=== PATIENT | female | born 2000 | race Caucasian/White ===

== ENCOUNTER 2024-09-28 11:00 | Inpatient (IN) | payer OTHER ==
[~2024-09-28 11:00] MED LIST: Bupivacaine 0.25% 10 ML SDV ONE
[2024-09-28] MEDS ORDERED: Sodium Chloride 0.9% 10 ML Syringe FLUSH PRN (19:06)
[2024-09-28] MEDS ORDERED: Ondansetron 4 MG/2 ML SDV IVPUSH PRN (19:06)
[2024-09-28] MEDS ORDERED: Lidocaine 1% 50 ML MDV INJECT PRN (19:06)
[2024-09-28] MEDS ORDERED: Nalbuphine 10 MG/1 ML Vial IVPUSH PRN (19:06)
[2024-09-28] MEDS ORDERED: Oxytocin/0.9 % Sodium Chloride 30 UNIT/500 ML BAG IV SCH ×2 (19:15→23:45)
[2024-09-28] MEDS ORDERED: Misoprostol 25 MCG (1/4 of 100 MCG) Tab VAG PRN (19:19)
[2024-09-28 19:23] LABS: BASOPHILS PERCENT AUTO 0.2 % (0.0-1.0); EOSINOPHILS ABSOLUTE AUTO 0.1 K/mm3 (0.0-0.4); EOSINOPHILS PERCENT AUTO 0.4 % (0.0-6.0); HEMATOCRIT 38.4 % (37.0-47.0); HEMOGLOBIN 12.6 gm/dl (12.0-16.0); IMMATURE GRAN ABSOLUTE AUTO 0.18 K/mm3 (0.00-0.05); IMMATURE GRAN PERCENT AUTO 1.3 % (0.0-0.4); LYMPHOCYTES ABSOLUTE AUTO 2.6 K/mm3 (1.0-4.8); LYMPHOCYTES PERCENT AUTO 18.1 % (24.0-44.0); MEAN CORPUSCULAR HEMOGLOBIN 28.6 pg (28.0-32.0); MEAN CORPUSCULAR HGB CONC 32.8 g/dl (32.0-36.0); MEAN CORPUSCULAR VOLUME 87.3 fl (83.0-99.0); MEAN PLATELET VOLUME 9.3 fl (9.4-12.3); MONOCYTES PERCENT AUTO 6.9 % (0.0-8.0); NEUTROPHILS ABSOLUTE AUTO 10.4 K/mm3 (1.8-7.7); NEUTROPHILS PERCENT AUTO 73.1 % (41.0-71.0); PLATELET COUNT,PLT 242 K/mm3 (150-400); WHITE BLOOD CELL COUNT,WBC 14.18 K/mm3 (3.9-11.3)
[2024-09-28] MEDS: Misoprostol 25 MCG (1/4 of 100 MCG) Tab VAG ONE (19:39)
[2024-09-28 19:45] LABS: ALANINE AMINOTRANSFERASE,ALT 23 U/L (14-59); ASPARTATE AMNIOTRANSFERASE,AST 18 U/L (15-37); BLOOD UREA NITROGEN,BUN 7 mg/dL (7-18); CREATININE 0.7 mg/dL (0.55-1.02); ESTIMATED GFR 122 mL/min (>60); LACTATE DEHYDROGENASE,LDH 193 U/L (81-234); URIC ACID 4.3 mg/dL (2.6-6.0)
[2024-09-28] MEDS ORDERED: Ampicillin 2 GM in Sodium Chloride 0.9% 100 ML IV ONE (20:00)
[2024-09-28] MEDS ORDERED: ePHEDrine 50 MG/ML SDV IVPUSH PRN (20:11)
[2024-09-28] MEDS ORDERED: diphenhydrAMINE 50 MG/ML SDV IVPUSH PRN (20:11)
[2024-09-28 22:23] LABS: CREATININE,URINE RAND 57.6 mg/dL (30.0-125.0); PROTEIN CREATININE RATIO,URINE 118.1 mg/g (0-149); PROTEIN,URINE RANDOM 6.8 mg/dL (0.0-11.8)
[2024-09-29] MEDS: Lactated Ringers 1,000 ML IV SCH
[2024-09-29] MEDS ORDERED: Ampicillin 1 GM in Sodium Chloride 0.9% 100 ML IV SCH
[2024-09-29] MEDS: Oxytocin/0.9 % Sodium Chloride 30 UNIT/500 ML BAG IV SCH (00:01)
[2024-09-29] MEDS: Ampicillin 2 GM in Sodium Chloride 0.9% 100 ML IV ONE (00:02)
[2024-09-29] MEDS: fentaNYL 100 MCG/2 ML SDV EPIDUR PRN (00:40)
[2024-09-29] MEDS: Bupivacaine/fentaNYL/NS 100 ML Bag EPIDUR PRN (00:41)
[2024-09-29] MEDS: Sodium Chloride 0.9% 10 ML Syringe FLUSH SCH (01:24)
[2024-09-29] MEDS: Ampicillin 1 GM in Sodium Chloride 0.9% 100 ML IV SCH (04:09)
[2024-09-29] MEDS ORDERED: Docusate Sodium 100 MG Cap PO PRN (14:25)
[2024-09-29] MEDS ORDERED: Acetaminophen 325 MG Tab PO PRN (14:25)
[2024-09-29] MEDS: Witch Hazel Medicated Pads 40/Jar TOP PRN (14:53)
[2024-09-29] MEDS: Benzocaine/Menthol 20%-0.5% Spray 78 GM Cannister TOP PRN (14:53)
[2024-09-29] MEDS: Misoprostol 200 MCG Tab PO ONE (14:53)
[2024-09-29] MEDS: Misoprostol 200 MCG Tab ONE (14:55)
[2024-09-29] MEDS: Ibuprofen 600 MG Tab PO SCH (18:09)
== END 2024-09-30 15:25 | disposition home or self-care (01) | DRG 806 ==
LOC: JD.OB 11:00 → OBSVTOIN 09-29 11:00 → JD.OB 09-29 11:01
PROVIDERS: ADMIT Obstetrics & Gynecology; ATTEND Obstetrics & Gynecology
PROC: 10E0XZZ Delivery of Products of Conception, External Approach (ICD-10-PCS; principal; 2024-09-29)
PROC: 0KQM0ZZ Repair Perineum Muscle, Open Approach (ICD-10-PCS; 2024-09-29)
PROC: 3E033VJ Introduction of Other Hormone into Peripheral Vein, Percutaneous Approach (ICD-10-PCS; 2024-09-29)
PROC: 3E0R3BZ Introduction of Anesthetic Agent into Spinal Canal, Percutaneous Approach (ICD-10-PCS; 2024-09-29)
PROC: 00HU33Z Insertion of Infusion Device into Spinal Canal, Percutaneous Approach (ICD-10-PCS; 2024-09-29)
DX: O42.02 Full-term premature rupture of membranes, onset of labor within 24 hours of rupture (principal); O10.92 Unspecified pre-existing hypertension complicating childbirth; Z37.0 Single live birth; O99.824 Streptococcus B carrier state complicating childbirth; O70.1 Second degree perineal laceration during delivery; Z3A.39 39 weeks gestation of pregnancy
CPT/HCPCS: 36415; 51701; 51702; 59025; 59409; 82565; 82570; 83615; 84156; 84450; 84460; 84520; 84550; 85025; 86592; 86850; 86900; 86901; A9270-GY; C1726; J0290; J0665; J3010; J3490; J7120; J7999